=== PATIENT | female | born 1995 | race American Indian/Alaskan Native ===

== ENCOUNTER 2018-12-31 17:02 | Emergency (ER) | payer BC ==
--- NOTE | 2018-12-31 17:08 | Emergency Department Report ---
Blank Doc - Documentation Documentation: This is a 23-year-old female that presents with right great toe pain s/p being steeped on. This initial assessment/diagnostic orders/clinical plan/treatment(s) is/are subject to change based on patient's health status, clinical progression and re- assessment by fellow clinical providers in the ED. Further treatment and workup at subsequent clinical providers discretion. Patient/guardians urged not to elope from the ED as their condition may be serious if not clinically assessed and managed. Initial orders include: 1- Patient sent to [facility] for further evaluation and treatment 2- xray
--- NOTE | 2018-12-31 18:20 | XRay Report ---
PROCEDURE: Right foot. TECHNIQUE: Right foot radiographs, AP, lateral, and oblique views. HISTORY: Great toe pain. COMPARISONS: None. FINDINGS: The bones appear intact without fracture or dislocation. The joint spaces appear normal. The soft tis sues are unremarkable. IMPRESSION: Normal study. This document is electronically signed by Doug Guzmán MD., Dec 31 2018 06:18:39 PM ET
--- NOTE | 2018-12-31 18:44 | Emergency Department Report ---
HPI - General Chief Complaint: Extremity Injury, Lower Time Seen by Provider: 12/31/18 17:07 - HPI HPI: 23-year-old female presents with a right great toe pain status post friend stepping on her toe earlier today. Patient states about 3 days ago she had just had the right great toenail removed after an injury. Patient states that today when her friend stepped on it and started to bleed again. Patient states she presents to be evaluated due to pain. She states that Bleeding has resolved and is dried. ED Past Medical Hx - Past Medical History Previous Medical History?: No - Surgical History Past Surgical History?: No - Social History Smoking Status: Never Smoker Substance Use Type: None - Medications Home Medications: Home Medications Medication Instructions Recorded Confirmed Last Taken Type Ibuprofen [Motrin] 600 mg PO Q8H PRN #20 tablet 12/31/18 Unknown Rx cephALEXin [Keflex] 500 mg PO Q12HR #10 cap 12/31/18 Unknown Rx ED Review of Systems ROS: Stated complaint: RT GREAT TOE PAIN/BLEEDING Other details as noted in HPI Comment: All other systems reviewed and negative Physical Exam - Physical Exam Vital Signs: Vital Signs 12/31/18 17:09 Temperature 98.8 F Pulse Rate 108 H Respiratory 18 Rate Blood Pressure 128/83 [Right] O2 Sat by Pulse 98 Oximetry Physical Exam: GENERAL: Alert and oriented x3, no apparent distress, Normal Gait, atraumatic. HEAD: Head is normocephalic and a-traumatic. EXTREMITIES/MUSCULOSKELETAL: No cyanosis, clubbing, rash, lesions or edema. Full ROM bilaterally. Pedal Pulses 2+ bilaterally. LE 5+ strength bilaterally, right great toenail falls, healing appropriately, no bleeding noted. NEUROLOGIC: The patient is cooperative with no focal neurologic deficits. SKIN: Warm and dry, No lesions, No ulceration or induration present. ED Course Vital Signs 12/31/18 17:09 Temperature 98.8 F Pulse Rate 108 H Respiratory 18 Rate Blood Pressure 128/83 [Right] O2 Sat by Pulse 98 Oximetry ED Medical Decision Making - Radiology Data Radiology results: report reviewed, image reviewed PROCEDURE: Right foot. TECHNIQUE: Right foot radiographs, AP, lateral, and oblique views. HISTORY: Great toe pain. COMPARISONS: None. FINDINGS: The bones appear intact without fracture or dislocation. The joint spaces appear normal. The soft tissues are unremarkable. IMPRESSION: Normal study. This document is electronically signed by Sharon Stewart MD., Dec 31 2018 06:18:39 PM ET Transcribed By: MRM Dictated By: SHARON STEWART MD Electronically Authenticated By: SHARON STEWART MD Signed Date/Time: 12/31/18 1820 - Medical Decision Making 23-year-old female presents with right great toe avulsion. There was no bleeding to the area. Wound was cleaned, and dressed sterilely. Discussed follow-up with primary care physician. 5 days. Medicines are normal patient is in no acute distress Critical care attestation.: If time is entered above; I have spent that time in minutes in the direct care of this critically ill patient, excluding procedure time. ED Disposition Clinical Impression: Toe pain, right Disposition: [id number] TO HOME OR SELFCARE Is pt being admited?: No Does the pt Need Aspirin: No Condition: Stable Instructions: Arthralgia (ED), Toenail/Fingernail Removal (ED) Additional Instructions: Make sure to follow up with the primary care physician as discussed. Take all your medications as you've been prescribed. If you have any worsening symptoms or develop new symptoms please return to ED immediately. Prescriptions: cephALEXin [Keflex] 500 mg PO Q12HR #10 cap Ibuprofen [Motrin] 600 mg PO Q8H PRN #20 tablet PRN Reason: Pain Referrals: MADI CARRASQUILLO MD [Primary Care Provider] - 3-5 Days Forms: Work/School Release Form(ED) Time of Disposition: 18:44
[2018-12-31 19:04] VITALS: BP 120/71
== END 2018-12-31 19:03 | disposition home or self-care (01) ==
LOC: EDBD → ED 17:02
DX: M79.674 Pain in right toe(s) (principal)
CPT/HCPCS: 99283